=== PATIENT | female | born 1980 | race Caucasian/White ===

== ENCOUNTER 2018-04-30 08:33 | Inpatient (IN) | payer OTHER ==
[~2018-04-30] VITALS: Ht 149.9 cm; Wt 56.7 kg
[2018-05-01] MEDS ORDERED: PRENATAL 19 TA1 EAC1 (13:42)
== END 2018-05-02 19:35 | DRG 766 ==
LOC: OB/GYN 08:33 → LDR 08:34 → OB/GYN 09:09
PROVIDERS: Obstetrics & Gynecology
PROC: 4A033R1 Measurement of Arterial Saturation, Peripheral, Percutaneous Approach (ICD-10-PCS; 2018-04-30)
PROC: 4A1HXCZ Monitoring of Products of Conception, Cardiac Rate, External Approach (ICD-10-PCS; 2018-04-30)
PROC: 10D00Z1 Extraction of Products of Conception, Low, Open Approach (ICD-10-PCS; principal; 2018-04-30 13:00)
DX: O82 Encounter for cesarean delivery without indication (principal); Z3A.38 38 weeks gestation of pregnancy; Z37.0 Single live birth; O09.523 Supervision of elderly multigravida, third trimester